=== PATIENT | female | born 1950 | race Caucasian/White ===

== ENCOUNTER → 2016-03-28 | Outpatient (CLI) | payer BC | END | disposition home or self-care (01) | DX: M17.11 Unilateral primary osteoarthritis, right knee (principal); M25.561 Pain in right knee; M25.661 Stiffness of right knee, not elsewhere classified; R26.2 Difficulty in walking, not elsewhere classified; M62.89 Other specified disorders of muscle | CPT/HCPCS: 97110 GP; 97150 GO; 97161 GP; 97165 GO ==

== ENCOUNTER → 2016-03-31 | Outpatient (CLI) | payer BC, MEDICARE | END | disposition home or self-care (01) | LOC: CDC 11:04 | DX: Z01.810 Encounter for preprocedural cardiovascular examination (principal) | CPT/HCPCS: 93000 ==

== ENCOUNTER 2016-04-18 09:07 | Inpatient (IN) | payer BC, OTHER ==
[2016-04-18] VITALS (7 sets, daily range): BP systolic 135–182; BP diastolic 63–83
[~2016-04-18] VITALS: Ht 157.5 cm; Wt 62.1 kg
[~2016-04-18 09:07] MED LIST: ALEVE220 MG PO; ALLEGRA ALLERG180 MG PO; CALCIUM 600 +1 EA16 PO; CENTURY ULTIMA1 EAC3 PO; GLUCOSAMINE H1500 MG PO; IRON325 MG PO; TIMOPTIC-0100 DROP/1 RIGHT EYE; XALATAN2.5 ML BOTH EYES; ZESTRIL5 MG PO; ZOCOR20 MG PO
[2016-04-19 04:00] VITALS: BP 124/73
[2016-04-19 05:20] LABS: HEMATOCRIT 34.2 % (36.0-46.0); MCV 88.4 FL (83-99)
[2016-04-19 08:00] VITALS: BP 162/76
[2016-04-19] MEDS ORDERED: ASPIRIN EC325 MG PO (09:35)
[2016-04-19] MEDS ORDERED: SENNA PLUS TAB1 EACH PO (09:36)
[2016-04-19] MEDS ORDERED: CELECOXIB200 MG PO (09:36)
[2016-04-19] MEDS ORDERED: HYDROCODON-ACE1 EAC7 PO (09:36)
[2016-04-19 11:45] VITALS: BP 170/72
== END 2016-04-19 12:10 | DRG 470 ==
LOC: 2SOUTH 09:07 → 3WEST 09:58 → 2SOUTH 11:13 → 3WEST 16:12
PROVIDERS: Orthopaedic Surgery
PROC: 0SRC0J9 Replacement of Right Knee Joint with Synthetic Substitute, Cemented, Open Approach (ICD-10-PCS; principal; 2016-04-18)
DX: M17.11 Unilateral primary osteoarthritis, right knee (principal); I10 Essential (primary) hypertension; E78.5 Hyperlipidemia, unspecified; F41.9 Anxiety disorder, unspecified; F32.9 Major depressive disorder, single episode, unspecified; Z87.891 Personal history of nicotine dependence
CPT/HCPCS: 36415; 85014; 85018; 86850; 86900; 86901; 86920; J0690; J1885; J2250; J3010; J3370; J7050; J7120; S0020

== ENCOUNTER → 2017-06-26 | Outpatient (CLI) | payer BC, MEDICARE ==
[~2017-06-26] MED LIST changes: +ASPIRIN EC325 MG PO; +CELECOXIB200 MG PO; +HYDROCODON-ACE1 EAC7 PO; +SENNA PLUS TAB1 EACH PO
== END | disposition home or self-care (01) ==
LOC: CDC 11:54
DX: Z01.810 Encounter for preprocedural cardiovascular examination (principal)
CPT/HCPCS: 93000